=== PATIENT | female | born 1970 | race Asian ===

== ENCOUNTER 2018-09-15 09:41 | Emergency (ER) | payer BC, OTHER ==
[2018-09-15] MEDS ORDERED: OXYCODONE-ACETAMINOPHEN 5-325 MG TABLET PO ONE (10:06)
--- NOTE | 2018-09-15 10:07 | ER Document Report ---
ED Medical Screen (RME) - General Chief Complaint: Hemorrhoids Stated Complaint: RECTAL PAIN Notes: Patient is a 48-year-old female that presents to the emergency department for chief complaint of hemorrhoids. Patient has been dealing with this pain for 6 days history of hemorrhoidectomy in the past. ROS: Unless otherwise stated in this report the patient's positive and negative responses for review of systems for constitutional, eyes, ENT, cardiovascular, respiratory, gastrointestinal, neurological, genitourinary, musculoskeletal, and integumentary systems and related systems to the presenting problem are either as stated in the HPI or were not pertinent or were negative for the symptoms and/or complaints related to the presenting medical problem. PHYSICAL EXAMINATION: Vital signs reviewed. GENERAL: Well-appearing, well-nourished and in no acute distress. HEAD: Atraumatic, normocephalic. EYES: Pupils equal round extraocular movements intact, conjunctiva are normal. ENT: Nares patent NECK: Normal range of motion CV: Heart regular rate and rhythm LUNGS: No respiratory distress Musculoskeletal: Normal range of motion NEUROLOGICAL: Normal speech PSYCH: Normal mood, normal affect. MDM: Patient seen and examined for rapid initial assessment. Vital signs reviewed. A comprehensive ED assessment and evaluation of the patient, analysis of test results and completion of the medical decision making process will be conducted by additional ED providers. *Note is created using voice recognition software and may contain spelling, syntax or grammatical errors. TRAVEL OUTSIDE OF THE [place] IN LAST 30 DAYS: No - Related Data Allergies/Adverse Reactions: No Known Allergies Allergy (Verified 09/15/18 09:43) Past Medical History - Social History Chew tobacco use (# tins/day): No Frequency of alcohol use: None Drug Abuse: None - Past Medical History Cardiac Medical History: Pulmonary Medical History: Neurological Medical History: Renal/ Medical History: Denies: Hx Peritoneal Dialysis GI Medical History: Musculoskeltal Medical History: Infectious Medical History: Past Surgical History: Physical Exam - Vital signs Vitals: Temp Pulse Resp BP Pulse Ox 98.2 F 71 18 113/76 99 09/15/18 09:46 09/15/18 09:46 09/15/18 09:46 09/15/18 09:46 09/15/18 09:46 Course - Vital Signs Vital signs: Temp Pulse Resp BP Pulse Ox 98.2 F 71 18 113/76 99 1027/18 09:46 09/15/18 09:46 09/15/18 09:46 09/15/18 09:46 09/15/18 09:46 Doctor's Discharge - Discharge Referrals: DALIA BARRON MD [Primary Care Provider] - Follow up as needed
--- NOTE | 2018-09-15 10:47 | ER Document Report ---
ED General - General Chief Complaint: Hemorrhoids Stated Complaint: RECTAL PAIN Time Seen by Provider: 09/15/18 10:11 TRAVEL OUTSIDE OF THE [place] IN LAST 30 DAYS: No - HPI Notes: Patient is a 48-year-old female that presents to the emergency department for chief complaint of hemorrhoids. Patient reports hemorrhoidal rectal pain for the last week. She states she has pain with bowel movements that is sharp and nonradiating. The pain is slightly relieved when she is lying on her side. She reports some bright red blood with bowel movements. She has a history of hemorrhoids and hemorrhoidectomy about 13 years ago. She denies any abdominal pain, nausea, vomiting, fevers or chills. She took codeine yesterday for the pain which did give her some improvement. She has been taking a stool softener 3 times daily for the last 2 days and states her stools are soft. Past Medical History: Negative Past Surgical History: x2 Social History: Denies drugs alcohol and tobacco Family History: Reviewed and noncontributory for presenting illness Allergies: Reviewed, see documented allergy list. REVIEW OF SYSTEMS: CONSTITUTIONAL : No fever No chills No diaphoresis No recent illness EENT: No vision changes No congestion No sore throat CARDIOVASCULAR: No chest pain No palpitations RESPIRATORY: No shortness of breath No cough No difficulty breathing GASTROINTESTINAL: No abdominal pain No nausea No vomiting No diarrhea GENITOURINARY: No dysuria No hematuria No difficulty urinating Hemorrhoid MUSCULOSKELETAL: No back pain No leg pain No arm pain SKIN: No rashes No lesions LYMPHATIC: No swollen, enlarged glands. NEUROLOGICAL: No lightheadedness No headache No weakness No paresthesias PSYCHIATRIC: No anxiety No depression PHYSICAL EXAMINATION: Vital signs reviewed, nursing noted reviewed. GENERAL: Well-appearing, well-nourished and in no acute distress. HEAD: Atraumatic, normocephalic. EYES: Eyes appear normal, extraocular movements intact, sclera anicteric, conjunctiva are normal. ENT: nares patent, oropharynx clear without exudates. Moist mucous membranes. NECK: Normal range of motion, supple without lymphadenopathy LUNGS: Breath sounds clear to auscultation bilaterally and equal. No wheezes rales or rhonchi. HEART: Regular rate and rhythm without murmurs ABDOMEN: Soft, nontender, normoactive bowel sounds. No rebound, guarding, or rigidity. No masses appreciated. : Multiple tender and enlarged external hemorrhoids, no active bleeding, tenderness to palpation. Normal rectal tone. EXTREMITIES: Nontender, good range of motion, no pitting or edema. NEUROLOGICAL: No focal neurological deficits. Moves all extremities spontaneously Motor and sensory grossly intact on exam. PSYCH: Normal mood, normal affect. SKIN: Warm, Dry, normal turgor, no rashes or lesions noted on exposed skin - Related Data Allergies/Adverse Reactions: No Known Allergies Allergy (Verified 09/15/18 09:43) Past Medical History - Social History Smoking Status: Never Smoker Chew tobacco use (# tins/day): No Frequency of alcohol use: None Drug Abuse: None Family History: Reviewed & Not Pertinent Patient has suicidal ideation: No Patient has homicidal ideation: No - Past Medical History Cardiac Medical History: Pulmonary Medical History: Neurological Medical History: Renal/ Medical History: Denies: Hx Peritoneal Dialysis GI Medical History: Musculoskeletal Medical History: Infectious Medical History: Past Surgical History: Review of Systems - Review of Systems Notes: Dictated Physical Exam - Vital signs Vitals: Temp Pulse Resp BP Pulse Ox 98.2 F 71 18 113/76 99 09/15/18 09:46 09/15/18 09:46 09/15/18 09:46 09/15/18 09:46 09/15/18 09:46 - Notes Notes: Dictated Course - Re-evaluation Re-evalutation: 09/15/18 10:43 Vitals reviewed. Nursing notes reviewed. Patient given Percocet for pain. Patient has multiple small external hemorrhoids. She has no active bleeding. She is hemodynamically stable. She will be given Anusol and stool softeners for home. She will follow with either GI or gastroenterology for further management of her external hemorrhoids. She was counseled on sits baths as well as good hygiene. She was discharged in stable condition. - Vital Signs Vital signs: Temp Pulse Resp BP Pulse Ox 98.2 F 71 18 113/76 99 09/15/18 09:46 09/15/18 09:46 09/15/18 09:46 09/15/18 09:46 09/15/18 09:46 Discharge - Discharge Clinical Impression: External hemorrhoid Condition: Stable Disposition: HOME, SELF-CARE Instructions: Hemorrhoids ([facility]) Additional Instructions: Please return to the emergency department if you have any worsening, or concern of your symptoms. Please return to the emergency department if you develop chest pain, difficulty breathing, severe abdominal pain, or ongoing vomiting. Please follow-up with your primary care physician in 2-3 days and any other recommended physicians. If prescribed, take all medications as directed. If you have any questions or concerns do not hesitate to return the emergency department for evaluation. Sit in warm water for 15-20 minutes at a time at least 3 times daily. Keep rectal area clean after bowel movements. Use stool softeners and Anusol cream as directed. Follow-up with either gastroenterology or surgery for further management if symptoms are not improving. Prescriptions: Pramoxine HCl/Mineral Oil/Znox [Anusol Ointment] 24 gm RC TID 10 Days oint..gm. Sennosides/Docusate Sodium [Docusate Sodium-Senna Tablet] 1 each PO TID PRN #30 tablet PRN Reason: constipation Referrals: DALIA BARRON MD [COMMUNITY BASED STAFF] - Follow up in 3-5 days KASSANDRA GARDNER MD [ACTIVE STAFF] - Follow up as needed RAJ BILL MD [ACTIVE STAFF] - Follow up as needed
[2018-09-15 11:28] VITALS: BP 102/71
== END 2018-09-15 11:28 | disposition home or self-care (01) ==
LOC: ER 09:41
DX: K64.4 Residual hemorrhoidal skin tags (principal)
CPT/HCPCS: 99283

== ENCOUNTER → 2018-10-03 | Outpatient (CLI) | payer OTHER ==
[2018-10-03 14:09] LABS: HEMATOCRIT 32.1 % (36.0-47.0); HEMOGLOBIN 10.8 g/dL (12.0-15.5); MEAN CORPUSCULAR HEMOGLOBIN 29.6 pg (27.0-33.4); MEAN CORPUSCULAR HGB CONC 33.5 g/dL (32.0-36.0); MEAN CORPUSCULAR VOLUME 88 fl (80-97); PLATELET COUNT 319 10^3/uL (150-450); RED BLOOD COUNT 3.65 10^6/uL (3.72-5.28); RED CELL DISTRIBUTION WIDTH 14.7 % (11.5-14.0); WHITE BLOOD COUNT 8.7 10^3/uL (4.0-10.5)
[2018-10-03 14:33] LABS: ANION GAP 10 (5-19); BLOOD UREA NITROGEN 13 mg/dL (7-20); CALCIUM 9.3 mg/dL (8.4-10.2); CARBON DIOXIDE 27 mmol/L (22-30); CHLORIDE 103 mmol/L (98-107); GLUCOSE 91 mg/dL (75-110); POTASSIUM 4.2 mmol/L (3.6-5.0); SODIUM 140.1 mmol/L (137-145)
== END ==
LOC: OD 12:55
PROVIDERS: ATTEND Surgery
DX: K64.9 Unspecified hemorrhoids (principal)
CPT/HCPCS: 36415; 80048; 85027

== ENCOUNTER 2018-10-05 11:12 | Day surgery (SDC) | payer OTHER ==
[~2018-10-05 11:12] MED LIST: IBUPROFEN 800 MG in NORMAL SALINE 250 ML IV PRN; LACTATED RINGERS 1000 ML IV PRN; LIDOCAINE 0.5% INJ-PF (5 MG/ML) 50 ML SDV SUBCUT PRN; METRONIDAZOLE 500 MG/NS RTU 500 MG/100 ML RTUPB IV PRN; ONDANSETRON HCL INJ/PF 4 MG/2 ML SDV ONE; SUCCINYLCHOLINE CHLORIDE INJ 200 MG/10 ML VIAL ONE
[2018-10-05] MEDS ORDERED: METRONIDAZOLE 500 MG/NS RTU 500 MG/100 ML RTUPB IV ONE (13:33)
[2018-10-05] MEDS ORDERED: BUPIVACAINE INJ/PF LIPOSOME/PF 266 MG/20 ML SDV ONE (15:04)
[2018-10-05] MEDS ORDERED: LIDOCAINE 2% JELLY 30 ML TUBE ONE (15:04)
[2018-10-05] MEDS ORDERED: BACITRACIN ZINC OINTMENT 15 GM ONE (15:04)
[2018-10-05] MEDS ORDERED: PROPOFOL INJ 200 MG/20 ML VIAL IV ONE (15:05)
[2018-10-05] MEDS ORDERED: MIDAZOLAM 2 MG/2 ML INJ ONE (15:05)
[2018-10-05] MEDS ORDERED: FENTANYL CITRATE INJ/PF 100 MCG/2 ML AMPUL ONE (15:05)
[2018-10-05] MEDS ORDERED: DIPHENHYDRAMINE HCL 50 MG/ML VIAL IV PRN (15:47)
[2018-10-05] MEDS ORDERED: FENTANYL CITRATE INJ/PF 100 MCG/2 ML AMPUL IV PRN ×3 (15:47)
[2018-10-05] MEDS ORDERED: MEPERIDINE HCL/PF INJ 25 MG/1 ML DISP.SYRIN IV PRN (15:47)
[2018-10-05] MEDS ORDERED: PROMETHAZINE HCL INJ 25 MG/1 ML VIAL IV PRN ×2 (15:47)
[2018-10-05 19:59] VITALS: BP 102/70
--- NOTE | 2018-10-06 17:04 | Discharge Summary ---
Discharge Summary (SDC) - Discharge Final Diagnosis: Thrombosed internal and external hemorrhoids Date of Surgery: 10/05/18 Discharge Date: 10/05/18 Condition: Good Forms: ASU Anesthesia D/C Instruction, Discharge POC-Surgical Service Referrals: PEDRO BEASLEY MD [Primary Care Provider] - KASSANDRA GARDNER MD [ACTIVE STAFF] - (Follow up in 7-10 days call for time) Respiratory Treatments at Home: Deep Breathing/Coughing Discharge Activity: Balance Activity w/Rest, No Lifting/Push/Pulling Home Care Assistance: Provided by Family Report the Following to Your Physician Immediately: Shortness of Breath, Nausea , Increase in Pain, Fever over 101 Degrees, Unusual Bleeding, Redness, Swelling , Warmth, Increased Soreness, Drainage-Yellow, IV Site Infection Signs
--- NOTE | 2018-10-06 17:09 | Operative Report ---
Nonrecallable Operative Report DATE OF SURGERY: 10/05/18 PREOPERATIVE DIAGNOSIS: Thrombosed internal and external hemorrhoids POSTOPERATIVE DIAGNOSIS: Thrombosed internal and external hemorrhoids in the left lateral and right posterior columns OPERATION: 2 column surgical hemorrhoidectomy (left lateral and right posterior columns) SURGEON: KASSANDRA GARDNER ANESTHESIA: GA TISSUE REMOVED OR ALTERED: Right posterior and left lateral hemorrhoid columns COMPLICATIONS: None apparent ESTIMATED BLOOD LOSS: Minimal PROCEDURE: Drains/implants: None. Procedure in detail: After informed consent was obtained, the patient was brought into the operating room and laid in the prone jackknife position. The area of the rectum was prepped and draped in a normal sterile fashion. An anal block was created with Exparel. A Hill-Galaviz retractor was then inserted into the rectum. The patient was noted to have enlarged hemorrhoids in the right posterior and left lateral columns. These extended from the internal to the external position. Surgical hemorrhoidectomy was found to be necessary to remove these hemorrhoids. The hemorrhoids were excised using Bovie electrocautery from the internal to the external position. After the hemorrhoid was removed the resultant defect was closed using 3-0 chromic suture in simple running fashion. This was done with great care, so as to reapproximate mucosa to mucosa, anoderm to anoderm, and skin to skin. This was done for both the right posterior and left lateral columns. The right anterior column was then inspected, and found to be free of any active hemorrhoidal disease. A dressing was placed, and the procedure was concluded. All sponge, instrument, and needle counts were correct x2. Condition: Stable.
== END 2018-10-05 18:35 | disposition home or self-care (01) ==
LOC: OROUT 11:12
PROVIDERS: ATTEND Surgery
DX: E04.1 Nontoxic single thyroid nodule (principal); K64.5 Perianal venous thrombosis; K64.4 Residual hemorrhoidal skin tags; K64.8 Other hemorrhoids
CPT/HCPCS: 81025; 88305 ×2; 46260; J2250; J3490; J3010; J0330; J2405; J7050; J2704; C9290; J1741; 902